=== PATIENT | male | born 1975 | race Two or more races ===

== ENCOUNTER 2020-05-28 13:18 | Emergency (ER) | payer SELFPAY ==
[~2020-05-28] VITALS: Ht 170.2 cm; Wt 93.0 kg
[2020-05-28 16:00] VITALS: BP 146/87
[2020-05-28] MEDS ORDERED: NYSTATIN TOPICAL POWDER 15GM BOTTLE. TP ONE (16:30)
[2020-05-28] MEDS ORDERED: CEPHALEXIN 250 MG CAPSULE. PO ONE (16:30)
[2020-05-28] MEDS ORDERED: LIDOCAINE 2%/EPI 1:100,000 20 ML VIAL. INJ ONE (16:30)
--- NOTE | 2020-05-28 16:40 | PHYS DOC ---
Past Medical History Past Medical History: Diabetes-Type II, High Cholesterol, Hypertension Past Surgical History: No Surgical History Alcohol Use: None Drug Use: None General Adult EDM: Chief Complaint: LACERATION/AVULSION HPI: HPI: Patient is a 44 year old male who presents with right foot pain and right groin rash. He states that since becoming homeless recently this month, he's been having to do a lot of walking on the street. For the past 8 days, he has noticed pain and redness in the right groin as well as pain at the base of the toe nail on his right great toe as well as the lateral aspect of his right pinky toe. Denies bleeding or oozing from wounds. Walking exacerbates the pain. He has not taken any medications for it. Denies fever, cough, congestion, or sick contacts. 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 Pt is [place]ian-speaker. Review of Systems: Review of Systems: Constitutional: Denies fever or chills HENT: Denies nasal congestion or sore throat Respiratory: Denies cough or shortness of breath GI: Denies abdominal pain, nausea, or vomiting Musculoskeletal: +R foot pain. Denies back pain or other joint pains Integument: +R groin rash. Denies skin lesions Complete systems were reviewed and found to be within normal limits, except as documented in this note. Family History: Family History: Non-contributory. Current Medications: Current Medications Medications (Trade) Dose Ordered Sig/Ada Start Time Stop Time Status Last Admin Dose Admin Cephalexin HCl (Keflex) 500 mg 1X ONCE 05/28/20 16:30 05/28/20 16:31 UNV Lidocaine/ Epinephrine (LIDOCAINE 2%-EPI 1:100,000 multi-dose) 20 ml 1X ONCE 05/28/20 16:30 20 16:31 UNV Nystatin (Nystop) 1 jaylyn 1X ONCE 05/28/20 16:30 05/28/20 16:31 UNV Physical Exam: PE: Constitutional: Well developed, well nourished, no acute distress, non-toxic appearance HENT: Normocephalic, atraumatic Eyes: conjunctiva normal, no discharge Skin: Warm, dry, no erythema, right groin erythema Extremities: tenderness to palpation of right great toe at base of toe nail, tenderness to palpation of lateral right pinky toe, blister on lateral aspect of right pinky toe (not-drainable), fluid collection at base of great toe nail on right foot, ROM intact, no edema Neurologic: Alert and oriented X 3, normal motor function, normal sensory func tion, no focal deficits noted Psychologic: Affect normal, judgment normal Course & Med Decision Making: Course & Med Decision Making Pt is a 44 year old male with history of recent homelessness who complains of right foot and groin pain for 8 days. Physical exam of right groin reveals erythema and mild swelling consistent with chaffing. On inspection of right great toe, there is an area of fluid collection at the base of his toe nail, likely paronychia. Plan to perform 4 nerve digital block on great toe prior to draining the abscess. Oral Keflex prescribed for paronychia and possible infection on pinky toe. Tetanus vaccine given as pt is not up to date on his vaccinations. Dragon Disclaimer: Dragon Disclaimer: This electronic medical record was generated, in whole or in part, using a voice recognition dictation system. Departure Departure Impression: Primary Impression: Paronychia Additional Impressions: Frostbite of toe of right foot Contact dermatitis Qualified Codes: L24.9 - Irritant contact dermatitis, unspecified cause Disposition: 01 DC HOME SELF CARE/HOMELESS Condition: STABLE Referrals: NO PCP (PCP) Patient Instructions: Contact Dermatitis, [id number], Frostbite, [id number], Paronychia, [id number] Additional Instructions: Do not soak your wound. You may shower. Clean wound daily with soap and water. Change dressing 2 times daily. Use over the counter antibiotic ointment with each dressing change. Keep groin irritation dry. You may get some "baby powder" or "talc powder/[place]" to keep area clean and dry. Use over the counter Ibuprofen and/or Tylenol. Scripts Cephalexin (KEFLEX) 500 Mg Capsule 500 MG PO QID for 7 Days, #28 CAP Prov: MENDY PEREZ DO 05/28/20 MENDY PEREZ DO May 28, 2020 16:40
[2020-05-28] MEDS ORDERED: DIPH,PERTUSS(ACELL),TET VAC/PF 0.5 ML SYRINGE. VAX IM ONE (16:45)
[2020-05-28] MEDS ORDERED: CEPH-264 PO (17:46)
[2020-05-28] MEDS ORDERED: BACITRACIN TOPICAL OINT PACKET. TP ONE (17:53)
== END 2020-05-28 18:05 | disposition home or self-care (01) ==
LOC: ER 13:18
DX: L03.031 Cellulitis of right toe (principal); L24.9 Irritant contact dermatitis, unspecified cause; E11.9 Type 2 diabetes mellitus without complications; Z59.0 Homelessness; E78.00 Pure hypercholesterolemia, unspecified; X31.XXXA Exposure to excessive natural cold, initial encounter; I10 Essential (primary) hypertension; Y93.89 Activity, other specified; Y92.89 Other specified places as the place of occurrence of the external cause; Y99.8 Other external cause status
CPT/HCPCS: 90471; 90715; 99283